=== PATIENT | male | born 1945 | race Caucasian/White ===

== ENCOUNTER 2019-05-15 08:17 | Emergency (ER) | payer MEDICARE, OTHER ==
--- NOTE | 2019-05-15 09:03 | EDM.PDOC ---
ED HPI GENERAL MEDICAL PROBLEM - General Chief Complaint: Lower Extremity Injury/Pain Stated Complaint: RIGHT HIP INJURY Time Seen by Provider: 05/15/19 09:03 Source of Information: Reports: Patient History Limitations: Reports: No Limitations - History of Present Illness INITIAL COMMENTS - FREE TEXT/NARRATIVE: pt fell last pm and he now has pain in the rt hip and rt pelvis area. He is having difficulty walking today. Onset: Other (pt fell last nite. ) Duration: Hour(s):, Getting Worse Location: Reports: Lower Extremity, Right Associated Symptoms: Reports: No Other Symptoms Right Hip Pain Score (Numeric/FACES): 3 - Related Data Allergies Allergy/AdvReac Type Severity Reaction Status Date / Time No Known Allergies Allergy Verified 05/15/19 08:46 Home Meds: Home Meds NK [No Known Home Meds] 05/15/19 [History] Past Medical History Respiratory History: Reports: Sleep Apnea Other Respiratory History: c-pap Gastrointestinal History: Reports: Other (See Below) Other Gastrointestinal History: hyperactive spleen Genitourinary History: Reports: Other (See Below) Other Genitourinary History: undesended testicle surgery age 14 Musculoskeletal History: Reports: Fracture Neurological History: Reports: Other (See Below) Other Neuro History: HSP Oncologic (Cancer) History: Reports: Basal Cell Carcinoma Dermatologic History: Reports: Benign Melanoma - Infectious Disease History Infectious Disease History: Reports: Chicken Pox, Measles, Mumps - Past Surgical History HEENT Surgical History: Reports: Adenoidectomy, Tonsillectomy GI Surgical History: Reports: Hernia Repair/Other, Other (See Below) Other GI Surgeries/Procedures: speenectomy Social & Family History - Tobacco Use Smoking Status *Q: Never Smoker - Caffeine Use Caffeine Use: Reports: Coffee - Recreational Drug Use Recreational Drug Use: No Review of Systems - Review of Systems Review Of Systems: See Below Constitutional: Reports: No Symptoms Eyes: Reports: Other (pupils are equal and reactive. ) Ears: Reports: No Symptoms Nose: Reports: No Symptoms Mouth/Throat: Reports: No Symptoms Respiratory: Reports: No Symptoms Cardiovascular: Reports: No Symptoms GI/Abdominal: Reports: No Symptoms Musculoskeletal: Reports: Other (pain in the rt hip and pelvis. ) Skin: Reports: No Symptoms ED EXAM, GENERAL - Physical Exam Exam: See Below Free Text/Narrative:: pt arrived complaining of pain when he tries to bear weight. He did fall last pm and he landed on his rt hip. He did not injure himself otherwise. Exam Limited By: No Limitations General Appearance: Alert, Mild Distress, Other (pupils equal and reactive. ) Ears: Normal TMs Nose: Normal Inspection Throat/Mouth: Normal Inspection Head: Atraumatic Neck: Normal Inspection Respiratory/Chest: No Respiratory Distress Cardiovascular: Regular Rate, Rhythm GI/Abdominal: Soft, Non-Tender (Male) Exam: Deferred Rectal (Males) Exam: Deferred Back Exam: Normal Inspection Extremities: Other (pt is tender over the rt hip area. He is not very uncomfortable when the leg is moved. ) Neurological: Alert, Oriented, Normal Cognition Psychiatric: Normal Affect Course - Vital Signs Last Recorded V/S: Last Vital Signs Temp 34.8 C L 05/15/19 08:44 Pulse 50 L 05/15/19 08:44 Resp 16 05/15/19 08:44 BP 130/71 05/15/19 08:44 Pulse Ox 93 L 05/15/19 08:44 - Re-Assessments/Exams Free Text/Narrative Re-Assessment/Exam: 05/15/19 10:55 pt arrived with pain in the rt hip with weight bearing. Pt had xrays of his hip and pelvis nd these were normal. 05/15/19 11:00 Departure - Departure Time of Disposition: 11:01 Disposition: Home, Self-Care 01 Condition: Fair Clinical Impression: Contusion of right hip - Discharge Information Referrals: PCP,None [Primary Care Provider] - Forms: ED Department Discharge Care Plan Goals: cool pack to the rt hip, alieve 2 tabs bid, use a walker if he feels more stable on his feet.
--- NOTE | 2019-05-15 10:42 | CRLCR ---
Indication: Injury and pain Technique: Pelvis and right hip 3 views Comparison: None Findings: Bones: Alignment is normal. No fractures or bone lesions. Joint spaces: Unremarkable. No significant degenerative changes. Soft tissues: Unremarkable. Multiple pelvic phleboliths. Impression: No sign of acute injury. No specific finding to explain pain. Dictated by Jose Posada MD @ 05/15/2019 10:41:44 AM Dictated by: Jose Posada MD @ 05/15/2019 10:41:48 (Electronically Signed)
== END 2019-05-15 11:09 | disposition home or self-care (01) ==
LOC: JP.ED 08:17
DX: S70.01XA Contusion of right hip, initial encounter (principal); W19.XXXA Unspecified fall, initial encounter
CPT/HCPCS: 73501-RT; 99283-25

== ENCOUNTER 2022-04-04 16:46 | Emergency (ER) | payer MEDICARE, OTHER ==
[2022-04-04] MEDS ORDERED: Acetaminophen/HYDROcodone 325-5 MG Tab PO ONE (18:14)
[2022-04-04] MEDS ORDERED: Propofol 200 MG/20 ML SDV ONE (22:05)
== END 2022-04-04 23:40 | disposition home or self-care (01) ==
LOC: JP.ED 16:46
DX: S43.014A Anterior dislocation of right humerus, initial encounter (principal); W01.0XXA Fall on same level from slipping, tripping and stumbling without subsequent striking against object, initial encounter
CPT/HCPCS: 23650; 73020; 73030; 99283; A9270; J2704

== ENCOUNTER 2023-10-08 19:29 | Emergency (ER) | payer MEDICARE, OTHER | END 2023-10-08 21:06 | disposition home or self-care (01) | LOC: JP.ED 19:29 | DX: S01.112A Laceration without foreign body of left eyelid and periocular area, initial encounter (principal); Z86.19 Personal history of other infectious and parasitic diseases; W01.0XXA Fall on same level from slipping, tripping and stumbling without subsequent striking against object, initial encounter | CPT/HCPCS: 99283 ==